=== PATIENT | male | born 1930 | race African-American/Black ===

== ENCOUNTER → 2017-03-08 | Outpatient (CLI) | payer OTHER ==
[~2017-03-08] MED LIST: SODIUM CHLORIDE 0.9% 10ML VIAL ONE
== END | disposition home or self-care (01) ==
LOC: NM 08:42
PROVIDERS: ATTEND Urology
DX: C61 Malignant neoplasm of prostate (principal); M47.895 Other spondylosis, thoracolumbar region
CPT/HCPCS: 78306; A4216; A9503